=== PATIENT | male | born 1950 | race Caucasian/White ===

== ENCOUNTER 2021-10-12 12:41 | Emergency (ER) | payer OTHER ==
[~2021-10-12] VITALS: Ht 165.1 cm; Wt 81.6 kg
[2021-10-12] MEDS ORDERED: BACITRACIN 1 GM OINT TP ONE (13:00)
[2021-10-12] MEDS ORDERED: DIPH-TET-PERTUS Vaccine 0.5 ML VIAL (ADACEL) I.M. ONE (13:00)
[2021-10-12] MEDS ORDERED: IBUPROFEN 800 MG TABLET PO ONE (13:00)
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
--- NOTE | 2021-10-12 13:04 | NUR ---
Per patient's request, called to inform her that he is here.
--- NOTE | 2021-10-12 13:06 | NUR ---
Cleaned several facial abrasions w. 0.9% N.S. & covered Basitracin & 4'X4's.
[2021-10-12] MEDS ORDERED: IBUP-1969 PO (13:08)
[2021-10-12 13:37] VITALS: BP_SYST 138
--- NOTE | 2021-10-12 13:39 | NUR ---
PT DISCHARGED GIVEN ACI. ALL QUESTIONS ANSWERED. WRIST BAND REMOVED. VSS. NAD NOTED. PT AMBULATED TO EXIT. END OF CARE.
== END 2021-10-12 13:37 | disposition home or self-care (01) ==
LOC: SED 12:41 → EDBD 12:41 → SED 13:37
DX: S01.81XA Laceration without foreign body of other part of head, initial encounter (principal); V43.52XA Car driver injured in collision with other type car in traffic accident, initial encounter; Y93.89 Activity, other specified; Y92.89 Other specified places as the place of occurrence of the external cause; Y99.8 Other external cause status
CPT/HCPCS: 99282; 99283

== ENCOUNTER 2021-10-14 13:44 | Emergency (ER) | payer OTHER ==
[~2021-10-14] VITALS: Ht 165.1 cm; Wt 81.6 kg
[~2021-10-14 13:44] MED LIST: IBUP-1969 PO
[2021-10-14 14:05] VITALS: BP_SYST 141
--- NOTE | 2021-10-14 14:33 | NUR ---
ER Dr. Daniel at bedside examining patient.
[2021-10-14] MEDS ORDERED: IBUPROFEN 800 MG TABLET PO ONE (14:45)
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
--- NOTE | 2021-10-14 14:50 | NUR ---
Pt to radiology via gurney; CXR done at bedside when returned.
[2021-10-14] MEDS ORDERED: ACET-2634 PO (16:57)
--- NOTE | 2021-10-14 17:05 | NUR ---
Patient given written and verbal discharge instructions and verbalizes understanding. ER MD discussed with patient the results and treatment provided. Patient in stable condition. ID arm band removed. Rx of extra strength Tylenol given. Patient educated on pain management and to follow up with PMD. Pain improved. Opportunity for questions provided and answered.
== END 2021-10-14 17:05 | disposition home or self-care (01) ==
LOC: SED 13:44
DX: S00.83XA Contusion of other part of head, initial encounter (principal); S20.211A Contusion of right front wall of thorax, initial encounter; Z79.899 Other long term (current) drug therapy; V49.49XA Driver injured in collision with other motor vehicles in traffic accident, initial encounter; Y93.89 Activity, other specified; Y92.89 Other specified places as the place of occurrence of the external cause; Y99.8 Other external cause status
CPT/HCPCS: 70450-TC; 71045; 76376; 99284